=== PATIENT | male | born 1975 | race Native Hawaiian/Other Pacific Islander ===

== ENCOUNTER 2020-06-08 12:37 | Day surgery (SDC) | payer OTHER ==
[~2020-06-08] VITALS: Ht 170.2 cm; Wt 97.2 kg
[2020-06-08 13:29] VITALS: BP 121/73; PULSE 59; TEMP 97.7
[2020-06-08 16:41] VITALS: BP 126/65; PULSE 80; TEMP 98.1
--- NOTE | 2020-06-08 16:41 | NUR ---
The patient arrived back to [facility] from the operating room at this time. The patient appears drowsy but arouses easily to his name. The patient's post operative vital signs were started at this time. Call light is within reach. Will continue to montior the patient.
[2020-06-08 16:56] VITALS: BP 115/64; PULSE 5
--- NOTE | 2020-06-08 16:56 | NUR ---
The patient appears to be resting comfortably on the cart at this time with his eyes closed. Respirations even and unlabored. Vital signs appear to be stable. Will continue to monitor the patient.
[2020-06-08 17:11] VITALS: BP 113/62; PULSE 69
--- NOTE | 2020-06-08 17:11 | NUR ---
The patient appears more alert at this time and agrees to try some orange juice. Vital signs appear stable. Will continue to monitor the patient.
[2020-06-08 17:26] VITALS: BP 114/67; PULSE 70
--- NOTE | 2020-06-08 17:26 | NUR ---
The patient has finished his juice and appeared to tolerate well. The patient denies wanting anything to drink at this time. The patient's ride was called and his heading to the hospital to pick him up. Discharge instructions were reviewed with the patient at this time. He verbalized understanding and has no questions for the nurse at this time.
--- NOTE | 2020-06-08 18:00 | NUR ---
The patient was escorted out via wheelchair to a private vehicle by JHOAN Fagan. The patient's belongings and discharge paperwork were sent with him. The patient's belongings and dischaerge paperwork were sent with him.
== END 2020-06-08 18:00 | disposition home or self-care (01) ==
LOC: SDCO 12:37
DX: N20.0 Calculus of kidney (principal); Z87.891 Personal history of nicotine dependence; Z80.0 Family history of malignant neoplasm of digestive organs
CPT/HCPCS: J0690; J2704; J3010; J7120

== ENCOUNTER 2020-11-01 06:18 | Day surgery (SDC) | payer OTHER ==
[~2020-11-01] VITALS: Ht 170.2 cm; Wt 97.3 kg
[2020-11-01] VITALS (7 sets, daily range): BP systolic 120–142; BP diastolic 75–91; PULSE 44–96; TEMP 97.8–98
--- NOTE | 2020-11-01 15:13 | NUR ---
PT WAS BROUGHT PER CART BACK TO [facility]. PT IS ALERT AND ORIENTATED X3. PT RATES PAIN AT 3 ON 0-10 SCALE. LUNGS CLEAR, HRR AND DEON. BOWEL SOUND PRESENT. PT REQUESTS A BLUEBERRY MUFFIN AND APPLE JUICE. VSS, AFEBRILE. SIDE RAILS UP, CALL LIGHT IN REACH.
--- NOTE | 2020-11-01 15:22 | NUR ---
PT SITTING IN BED WITH HEAD ELEVATED. IS TOLERATING FOOD AND FLUIDS WITHOUT NAUSEA AND VOMITING. PT WATCHING TV, CALL LIGHT IN REACH.
--- NOTE | 2020-11-01 15:29 | NUR ---
PT UP TO THE BATHROOM TO URINATE, TRYING TO HAVE A BOWEL MOVEMENT WELL. PT STATED FEELING ALOT OF BURNING AND HAVING RIGHT INGUINAL PAIN. 6 OUNCES OF LIGHT RED FLUID WITH STRINGY DISCHARGE X2 NOTED IN THE HAT. PT STATES FEELING READY FOR A PAIN PILL. WILL CONT TO MONITOR.
--- NOTE | 2020-11-01 15:37 | NUR ---
NORCO GIVEN FOR RIGHT GROIN PAIN.
--- NOTE | 2020-11-01 15:51 | NUR ---
PT RESTING IN BED, STILL FEELING UNCOMFORTABLE, PT STATES. RATES PAIN AT A 0 ON A 0-10 SCALE. UP TO THE BATHROOM, URINATING LIGHT RED URINE. DENIES NAUSEA. WILL CONT TO MONITOR.
--- NOTE | 2020-11-01 15:59 | NUR ---
PT DENIES PAIN AT THIS TIME. IV DC'D TO RIGHT HAND. PT TOLERATED WELL. PT FRIEND, ROS WAS NOTIFIED OF PT PENDING DISMISSAL. PT WAS GIVEN DISCHARGE INSTRUCTIONS, AND VOICES UNDERSTANDING. PT WAS DISCHARGED TO PT ENTRANCE PER . PT FRIEND WAS DRIVING PT BACK TO THE [facility] [email or web address] [facility]. PT HAS A RETURN APPT ON 11/08.
== END 2020-11-01 12:15 | disposition home or self-care (01) ==
LOC: SDCO 06:18
DX: N20.1 Calculus of ureter (principal); Z20.822 Contact with and (suspected) exposure to COVID-19; Z87.891 Personal history of nicotine dependence; Z79.899 Other long term (current) drug therapy
CPT/HCPCS: C1769; C2617; J0690; J1100; J2405; J2704; J3010; J7120; Q9967